=== PATIENT | male | born 1980 | race Caucasian/White ===

== ENCOUNTER → 2022-04-09 | Outpatient (CLI) | payer OTHER ==
[2022-04-09 13:27] LABS: THYROID STIMULATING HORMONE 2.19 uIU/ML (0.358-3.740); THYROXINE (T4) 10.8 UG/DL (4.5-12.0)
[2022-04-09 14:58] LABS: TOTAL T3 126.5 NG/DL (60.0-181.0)
== END ==
LOC: M LAB 12:01
PROVIDERS: ATTEND Ophthalmology
DX: H52.13 Myopia, bilateral (principal); G43.909 Migraine, unspecified, not intractable, without status migrainosus

== ENCOUNTER → 2025-03-23 | Outpatient (CLI) | payer OTHER | LOC: M SLEEP 20:00 | PROVIDERS: ATTEND Internal Medicine | DX: G47.33 Obstructive sleep apnea (adult) (pediatric) (principal) ==